=== PATIENT | male | born 1980 | race Caucasian/White ===

== ENCOUNTER 2020-06-09 16:05 | Emergency (ER) | payer OTHER ==
[~2020-06-09] VITALS: Ht 175.3 cm; Wt 107.2 kg
[2020-06-09 16:15] VITALS: BP 166/111
--- NOTE | 2020-06-09 16:47 | RAD ---
Two-view left tibia fibula Portable AP lateral views HISTORY: Pain after fall The visualized osseous structures appear normal. IMPRESSION: No acute findings. Electronically signed by: Boaz Choi III, MD (06/09/2020 4:44 PM) [facility] [place]
--- NOTE | 2020-06-09 17:35 | PHYS DOC ---
Past History Past Medical History: No Pertinent History (MCKINLEY HERBERT APRN) Past Surgical History: Appendectomy Additional Past Surgical Histo: NOSE, JAW AND (B)KNEE (MCKINLEY HERBERT APRN) Alcohol Use: Occasionally (MCKINLEY HERBERT APRN) Adult General Chief Complaint Chief Complaint: MECHANICAL FALL HPI HPI Patient is a 39-year-old male presents emergency department complaining of left lower extremity pain for the past 2 weeks. Patient states that approximately 2 weeks ago he slipped on the ice and fell against a curb injuring his left lower extremity. Patient states he developed a baseball size swelling to the medial aspect just below his left calf. Patient states that the swelling eventually went down however he noticed bruising and swelling to his ankle and foot since the original injury date. Patient states he has been icing twice a day by going outside and sitting in the snow for 20 to 30 minutes. Patient reports his pain a 2/10 on a 1-10 pain scale. Patient reports a surgical history of bilateral knee meniscus repairs, nasal septum surgery, a tooth screwed into his jaw, and appendectomy. Patient denies taking any medications at home. Patient states she is concerned that the bruising and swelling is traveling down towards his ankle and foot, reporting that the bruising at the original injury site has much improved. Patient reports tingling to his left lower extremity just below his calf, denies numbness, or loss of movement. (MCKINLEY HERBERT APRN) Review of Systems Review of Systems 14 body systems of review of systems have been reviewed. See HPI for pertinent positives and negative responses, otherwise all other systems are negative, nonpertinent or noncontributory. (MCKINLEY HERBERT APRN) Allergies Allergies Allergies Coded Allergies Type Severity Reaction Last Updated Verified No Known Drug Allergies 06/09/20 No (MCKINLEY HERBERT APRN) Physical Exam Physical Exam Constitutional: Well developed, well nourished, no acute distress, non-toxic appearance. HENT: Normocephalic, atraumatic, bilateral external ears normal, oropharynx fabio st, no oral exudates, nose normal. Eyes: PERRLA, EOMI, conjunctiva normal, no discharge. Neck: Normal range of motion, no tenderness, supple, no stridor. Cardiovascular:Heart rate regular rhythm, no murmur Lungs & Thorax: Bilateral breath sounds clear to auscultation Abdomen: Bowel sounds normal, soft, no tenderness, no masses, no pulsatile masses. Skin: Warm, dry, no erythema, no rash. Back: No tenderness, no CVA tenderness. Extremities: No tenderness, no cyanosis, no clubbing, ROM intact, no edema. Sent for left lower extremity, specifically medial aspect just distal to calf i ncreased pain to palpation, 1+ nonpitting edema to ankle and foot, yellow to dark purple areas of ecchymosis to left medial lower extremity just distal to calf down to ankle and foot. Distal cap refill less than 2 seconds, full AROM/PROM, no loss of sensation appreciated, no crepitus appreciated, no deformity appreciated. Skin is tight, good skin turgor. 2+ dorsalis pedis/posterior tibial pulse of the left lower extremity. Neurologic: Alert and oriented X 3, normal motor function, normal sensory function, no focal deficits noted. Psychologic: Affect normal, judgement normal, mood normal. (MCKINLEY HERBERT APRN) Current Patient Data Vital Signs Vital Signs Date Time Temp Pulse Resp B/P (MAP) Pulse Ox O2 Delivery O2 Flow Rate FiO2 06/09/20 16:15 97.6 66 16 166/111 (129) 99 Room Air (MCKINLEY HERBERT APRN) EKG EKG [] (MCKINLEY HERBERT APRN) Radiology/Procedures Radiology/Procedures ATIENT: GUILLERMO ANDERSON ACCOUNT: [id number] : 1980 LOCATION: ER AGE: 39 SEX: M EXAM STATUS: REG ER ORD. PHYSICIAN: MCKINLEY HERBERT APRN REASON: MEDIAL MIDSHAFT TIB/FIB PAIN AFTER FALL PROCEDURE: TIBIA FIBULA LEFT Two-view left tibia fibula Portable AP lateral views HISTORY: Pain after fall The visualized osseous structures appear normal. IMPRESSION: No acute findings. Electronically signed by: Catina Kenyon III, MD (06/09/2020 4:44 PM) [facility] DICTATED AND SIGNED BY: CATINA KENYON III, MD DATE: 06/09/20 8049 CC: MCKINLEY HERBERT APRN; EMERGENCY,DEPARTMENT; PCP,NO ~MTH0 0 PATIENT: GUILLERMO ANDERSON ACCOUNT: [id number] : 1980 LOCATION: ER AGE: 39 SEX: M EXAM STATUS: REG ER ORD. PHYSICIAN: MCKINLEY HERBERT APRN REASON: SWELLING S/P INJURY R/O COMPARTMENT SYNDROME DISTAL TO CALF PROCEDURE: ARTERIAL STUDY LOWER EXT LEFT Left lower extremity arterial Doppler dated 06/09/2020. No comparison available. Clinical data indication: Soft tissue swelling post injury. Evaluate for compartment syndrome or vascular compromise. FINDINGS: Grayscale, color-flow and spectral waveform analysis performed to include the arterial tree of the left lower extremity. There is triphasic flow within the common femoral artery, profundus femoris and superficial femoral artery and popliteal artery. No focal stenosis. Velocity measurements within the range of normal. Biphasic to triphasic flow in the calf. IMPRESSION: No evidence of hemodynamically significant left lower extremity arterial stenosis. Electronically signed by: Mckinley Wahl MD (06/09/2020 5:35 PM) [facility] [place] AND SIGNED BY: MCKINLEY WAHL MD DATE: 06/09/20 1733 CC: MCKINLEY HERBERT APRN; PCP,NO ~MTH0 0 (MCKINLEY HERBERT APRN) Heart Score Risk Factors: Risk Factors: DM, Current or recent (<one month) smoker, HTN, HLP, family history of CAD, obesity. Risk Scores: Risk Factors: DM, Current or recent (<one month) smoker, HTN, HLP, family history of CAD, obesity. (MCKINLEY HERBERT APRN) Course & Med Decision Making Course & Med Decision Making Pertinent Labs and Imaging studies reviewed. (See chart for details) 39-year-old male, vital signs reviewed, presents emergency department for evaluation of his left lower extremity status post fall 2 weeks ago. Physical examination concerning for contusion versus compartment syndrome. This facility does not have a Clover compartment syndrome monitor device, will x-ray left lower extremity along with sonogram per tissue injury. The patient had been treating left lower extremity injury with ice only stating he was laying out in the snow twice a day, the patient was not using compression, rest, or elevation. Radiology imaging negative for deep tissue injury, discussed findings with patient, discussed RICE therapy, patient gave verbal understanding of RICE therapy, an Aron wrap was applied by ED nursing staff, patient gave verbal understanding of discharge home instructions, follow-up with primary care soon, return to ER precautions and concerns, patient was discharged home without incident. (MCKINLEY HERBERT APRN) Course & Med Decision Making Did not see or evaluate patient. Agree with YOU[facility] LEADER's work-up and disposition per note. (MARK KHAN MD) Dragon Disclaimer Dragon Disclaimer This electronic medical record was generated, in whole or in part, using a voice recognition dictation system. (MCKINLEY HERBERT APRN) Departure Departure: Impression: Primary Impression: Contusion of left lower leg, initial encounter Disposition: 01 DC HOME SELF CARE/HOMELESS Condition: GOOD Referrals: PCP,NO (PCP) Patient Instructions: Contusion, Elastic Bandage and RICE, RICE - Routine Care for Injuries Additional Instructions: Please continue to use Tylenol and/or Motrin for discomfort, follow RICE therapy for your contusion of your leg, follow-up with your primary care doctor for ongoing aches and pains, return to the emergency department for worsening symptoms or other concerns EMERGENCY DEPARTMENT GENERAL DISCHARGE INSTRUCTIONS Thank you for coming to [facility] (ED) today and trusting us with you care. We trust that you had a positivie experience in our Emergency Department. If you wish to speak to the department management, you may call the director at [phone]. YOUR FOLLOW UP INSTRUCTIONS ARE FOLLOWS: 1. Do you have a private Doctor? If you do not have a private doctor, please ask for a resource list of physicians or clinics that may be able to assist you with follow up care. 2. The Emergency Physician has interpreted your x-rays. The X-Ray specialist w ill also review them. If there is a change in the findings, you will be notified in 48 hours when at all possible. 3. A lab test or culture has been done, your results will be reviewed and you will be notified if you need a change in treatment. ADDITIONAL INSTRUCTIONS AND INFORMATION: 1. Your care today has been supervised by a physician who is specially trained in emergency care. Many problems require more than one evaluation for a complete diagnosis and treatment. We recommend that you schedule your follow up appointment as recommended to ensure complete treatment of you illness or injury. If you are unable to obtain follow up care and continue to have a problem, or if your condition worsens, we recommend that you return to the ED. 2. We are not able to safely determine your condition over the phone nor are we able to give sound medical advice over the phone. For these safety reasons, if you call for medical advice we will ask you to come to the ED for further evaluation. 3. If you have any questions regarding these discharge instructions please call the ED at [phone]. SAFETY INFORMATION: In the interest of safety, wellness, and injury prevention; we encourage you to wear your sealbelt, if you smoke; quite smoking, and we encourage family to use a protective helmet for bicycling and other sporting events that present an increased risk for head injury. IF YOUR SYMPTOMS WORSEN OR NEW SYMPTOMS DEVELOP, OR YOU HAVE CONCERNS ABOUT YOUR CONDITION; OR IF YOUR CONDITION WORSENS WHILE YOU ARE WAITING FOR YOUR FOLLOW UP APPOINTMENT; EITHER CONTACT YOUR PRIMARY CARE DOCTOR, THE PHYSICIAN WHOSE NAME AND NUMBER YOU WERE GIVEN, OR RETURN TO THE ED IMMEDIATELY. MCKINLEY HERBERT APRN Jun 09, 2020 17:35 MARK KHAN MD Jun 09, 2020 23:38
--- NOTE | 2020-06-09 17:37 | RAD ---
Left lower extremity arterial Doppler dated 06/09/2020. No comparison available. Clinical data indication: Soft tissue swelling post injury. Evaluate for compartment syndrome or vasc ular compromise. FINDINGS: Grayscale, color-flow and spectral waveform analysis performed to include the arterial tree of the le ft lower extremity. There is triphasic flow within the common femoral artery, profundus femoris and s uperficial femoral artery and popliteal artery. No focal stenosis. Velocity measurements within the r lazara of normal. Biphasic to triphasic flow in the calf. IMPRESSION: No evidence of hemodynamically significant left lower extremity arterial stenosis. Electronically signed by: Mckinley Alvarez MD (06/09/2020 5:35 PM) [facility]
== END 2020-06-09 18:30 | disposition home or self-care (01) ==
LOC: ER 16:05
DX: S80.12XA Contusion of left lower leg, initial encounter (principal); R60.0 Localized edema; Z90.89 Acquired absence of other organs; Z98.890 Other specified postprocedural states; W00.0XXA Fall on same level due to ice and snow, initial encounter; Y93.89 Activity, other specified; Y92.89 Other specified places as the place of occurrence of the external cause; Y99.8 Other external cause status
CPT/HCPCS: 73590; 93923; 99284

== ENCOUNTER 2021-05-10 20:06 | Emergency (ER) | payer OTHER ==
[~2021-05-10] VITALS: Ht 175.3 cm; Wt 107.2 kg
[2021-05-10 21:13] VITALS: BP 140/91
[2021-05-10] MEDS ORDERED: KETOROLAC 30 MG/ML VIAL. IM ONE (21:45)
[2021-05-10] MEDS ORDERED: ORPH-16 PO (22:11)
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
== END 2021-05-10 22:28 | disposition home or self-care (01) ==
LOC: ER 20:06
DX: S16.1XXA Strain of muscle, fascia and tendon at neck level, initial encounter (principal); S20.219A Contusion of unspecified front wall of thorax, initial encounter; V43.52XA Car driver injured in collision with other type car in traffic accident, initial encounter; Y93.89 Activity, other specified; Y92.89 Other specified places as the place of occurrence of the external cause; Y99.8 Other external cause status
CPT/HCPCS: 71046; 96372; 99283; J1885